=== PATIENT | female | born 1945 | race Hispanic/Latino ===

== ENCOUNTER 2022-08-31 23:22 | Emergency (ER) | payer MEDICARE ==
[~2022-08-31 23:22] MED LIST: CALC-911 PO; CINN500C PO; CLOP-31 PO; CLOTRIMAZOLE 1%; DONE5TAB33 PO; EMPA25TA PO; LOSA50TA64 PO; METO25TA6 PO; NETA2.5D OP; OXYB5TAB15 PO; PREG75CA75 PO; UBID100C10 PO; VIT B12 PO
[2022-08-31 23:54] LABS: BASOPHILS % (AUTO) 0.2 % (0.0-5.0); EOSINOPHILS % (AUTO) 0.8 % (0.0-8.0); HEMATOCRIT 35.8 % (36-48); LYMPHOCYTES % (AUTO) 4.8 % (21.0-51.0); MEAN CORPUSCULAR HEMOGLOBIN 31.6 pg (27.0-33.0); MONOCYTES % (AUTO) 3.2 % (3.0-13.0); NEUTROPHILS % (AUTO) 90.7 % (40.0-77.0); PLATELET COUNT (AUTO) 273 K/uL (130-400); RED BLOOD CELL COUNT(AUTO) 3.73 MIL/uL (4.00-5.50); WHITE BLOOD COUNT (AUTO) 10.1 K/uL (4.8-10.8)
[2022-09-01 00:05] LABS: POTASSIUM 4.3 mmol/L (3.5-5.1)
[2022-09-01 00:09] LABS: ALBUMIN 3.4 g/dL (3.5-5.0); TOTAL PROTEIN, SERUM 6.9 g/dL (6.0-8.3)
[2022-09-01] MEDS ORDERED: DIPH1TAB PO ×2 (00:35→01:39)
[2022-09-01] MEDS ORDERED: ONDA-104 PO ×2 (00:35→01:39)
[2022-09-01 00:49] VITALS: BP 137/48
== END 2022-09-01 02:53 | disposition home or self-care (01) ==
LOC: EDH 23:22
DX: K52.9 Noninfective gastroenteritis and colitis, unspecified (principal); I10 Essential (primary) hypertension; E11.9 Type 2 diabetes mellitus without complications; F03.90 Unspecified dementia, unspecified severity, without behavioral disturbance, psychotic disturbance, mood disturbance, and anxiety; Z79.84 Long term (current) use of oral hypoglycemic drugs; Z79.899 Other long term (current) drug therapy; Z86.73 Personal history of transient ischemic attack (TIA), and cerebral infarction without residual deficits; Z88.5 Allergy status to narcotic agent; Z88.8 Allergy status to other drugs, medicaments and biological substances
CPT/HCPCS: 36415; 80053; 85025